=== PATIENT | female | born 1995 | race Caucasian/White ===

== ENCOUNTER 2024-04-22 03:54 | Outpatient (CLI) | payer MEDICAID, SELFPAY | END 2024-04-22 03:55 | disposition home or self-care (01) | LOC: AMB 05-01 22:57 | PROVIDERS: Visit Provider Family Medicine | DX: R56.9 Unspecified convulsions (principal); I60.9 Nontraumatic subarachnoid hemorrhage, unspecified | CPT/HCPCS: A0425; A0434 ==